=== PATIENT | male | born 1975 | race Caucasian/White ===

== ENCOUNTER 2024-12-24 20:53 | Emergency (ER) | payer OTHER ==
[~2024-12-24] VITALS: Ht 175.2 cm; Wt 71.7 kg
[2024-12-24] MEDS ORDERED: Sulfamethoxazole/Trimethopri 1 TAB TAB PO ONE (21:20)
[2024-12-24] MEDS ORDERED: SEPTDS PO (21:22)
== END 2024-12-24 21:24 | disposition home or self-care (01) ==
LOC: ED 20:53
DX: S70.922A Unspecified superficial injury of left thigh, initial encounter (principal); L08.9 Local infection of the skin and subcutaneous tissue, unspecified; Z86.14 Personal history of Methicillin resistant Staphylococcus aureus infection; Z88.1 Allergy status to other antibiotic agents; X58.XXXA Exposure to other specified factors, initial encounter; Y93.89 Activity, other specified; Y92.89 Other specified places as the place of occurrence of the external cause; Y99.8 Other external cause status